=== PATIENT | female | born 1955 | race Caucasian/White ===

== ENCOUNTER → 2018-07-06 15:03 | Outpatient (CLI) | payer BC, SELFPAY ==
--- NOTE | 2018-07-06 15:07 | MM_ITS ---
MM Dig SC mamm implant BI CAD CAD Screening COMPARISON: Digital mammograms with CAD 06/16/2011 and 06/02/2010 INDICATION: There is a history of breast cancer in patient's maternal aunt diagnosed at age 50. The patient has bilateral breast implants. TECHNIQUE: Standard CC and MLO images were obtained. R2 CAD reviewed. FINDINGS: Bilateral breast implants are noted. There is no evidence of leakage. Mild fibroglandular densities are seen in the [place] breast tissue around the implants. There is no suspicious lesion and there are no suspicious microcalcifications. IMPRESSION: Stable exam with bilateral breast implants and no suspicious lesion seen BI-RADS Category: 2 Benign Finding(s) RECOMMENDED FOLLOW-UP: 1YR - 1 YEAR FOLLOW-UP (A letter has been sent to the patient regarding results of the study.)
== END ==
PROVIDERS: Family Provider Family Medicine; PCP Nurse Practitioner Family; Visit Provider Nurse Practitioner Family
DX: Z12.31 Encounter for screening mammogram for malignant neoplasm of breast (principal)
CPT/HCPCS: 77066; 77067

== ENCOUNTER → 2020-03-18 12:02 | Outpatient (CLI) | payer BC, SELFPAY ==
--- NOTE | 2020-03-18 12:36 | ECG_ITS ---
APPROVED REPORT Exam: Resting ECG HR:70 bpm ECG Measurements Heart Rate 70 AXES HI 130 P 82 QRSd 74 QRS 84 QT 422 T 78 QTc 455 <Conclusion> Normal sinus rhythm Right atrial enlargement Minimal voltage criteria for LVH, may be normal variant ST abnormality, possible digitalis effect Abnormal ECG Electronically signed by : Zaid Atkinson, 03/21/2020 14:17:55
== END ==
PROVIDERS: PCP Nurse Practitioner Family; Visit Provider Nurse Practitioner Family
DX: Z86.79 Personal history of other diseases of the circulatory system (principal)
CPT/HCPCS: 93005

== ENCOUNTER → 2020-03-26 07:47 | Outpatient (CLI) | payer BC, SELFPAY ==
--- NOTE | 2020-03-26 07:50 | MM_ITS ---
PROCEDURE: MM DIG SC MAMM IMPLANT BI CAD Digital Breast Tomosynthesis Included CLINICAL INDICATION: SCREENING There is a history of breast cancer in the patient's maternal aunt diagnosed at age 50. The patient has bilateral breast implants. COMPARISON: [facility] DIGITAL MAMM-SCREEN IMPLANT from 06/16/2011 [facility] MM Dig SC mamm implant BI CAD from 07/06/2018 TECHNIQUE: Standard CC and MLO images and 3D Tomosynthesis was obtained. R2 CAD reviewed. FINDINGS: The bilateral breast implants are intact with no evidence of leakage. Prominent diffuse there is a benign-appearing calcification right breast. There is no suspicious lesion and no suspicious microcalcifications. Fibroglandular densities are seen in the [place] breast tissue around the implants. IMPRESSION: Stable exam with no suspicious lesions seen, breast implants are intact BI-RAD Category: 2 Benign Finding(s) FOLLOW-UP: 1YR 1 Year Follow-up (A letter has been sent to the patient regarding results of the study.) Dictated by: Dr. Mike Damon MD 04/01/2020 10:[address] Mike Damon MD in [place] 04/01/2020 10:47
--- NOTE | 2020-03-26 08:45 | CA_ITS ---
APPROVED REPORT EXAM: Comprehensive 2D, Doppler, and color-flow Echocardiogram Sed Special Education Teacher: Rosmery Lombardi RDCS Ht: 5 ft 3 in Wt: 114lbs BSA: 1.52 BP: 130/80 mmHg Indications: MURMUR H/O RHEU HTN 2D Dimensions LVOT 1.69 cm (M/F) 1.5-2.5 M-Mode Dimensions RVDd 2.15 cm (0.9-2.6) LVDd 4.29 cm (3.5-5.7) LVDs 3.22 cm (3.5-5.7) IVSd 0.80 cm (0.6-1.1) PWd 0.74 cm (0.6-1.1) EF (Teich) 49.60% FS 24.90% EDV (Teich) 82.60 mL ESV (Teich) 41.60 mL LV Diastology E/A Ratio 0.61 Mitral Valve MV A Velocity 79.00 (40-130 cm/s) Left Ventricle Left atrium is mildly enlarged, left ventricle is normal size, mild concentric left ventricular hypertrophy, visually estimated ejection fraction 55% with no regional wall motion abnormality. Grade 1 diastolic dysfunction seen without tissue Doppler evidence of raise left atrial pressure. Right Ventricle Right atrium and right ventricle is normal size and contractility. Aortic Valve Aortic valve is minimally thickened and fibrosed, there is no aortic stenosis, there is mild aortic insufficiency. Mitral Valve Mitral valve leaflets are minimally thickened, there is no mitral stenosis, there is mild mitral regurgitation. Tricuspid Valve Tricuspid valve is grossly normal, there is mild tricuspid regurgitation, tricuspid regurgitation jet velocity is inadequate for calculation of the right ventricular systolic pressure. Pulmonic Valve Pulmonic valve is poorly visualized. Great Vessels Aortic root is normal size. Pericardium No significant pericardial effusion noted. Conclusion 1. Mildly enlarged left atrium, normal left ventricular size, mild concentric left ventricular hypertrophy, visually estimated ejection fraction 55% with no regional wall motion abnormality, grade 1 diastolic dysfunction seen without tissue Doppler evidence of raise left atrial pressure. 2. Thickened and calcified aortic valve without aortic stenosis, there is mild aortic insufficiency. 3. Minimally thickened mitral valve without mitral stenosis, there is mild mitral regurgitation. 4. Mild tricuspid regurgitation, tricuspid regurgitation jet velocity is inadequate for calculation of the right ventricular systolic pressure. 5. No significant pericardial effusion noted. Electronically signed by : Fernando Stark, 03/26/2020 15:11:12
== END ==
PROVIDERS: PCP Nurse Practitioner Family; Visit Provider Nurse Practitioner Family
DX: Z12.31 Encounter for screening mammogram for malignant neoplasm of breast (principal); R01.1 Cardiac murmur, unspecified; I10 Essential (primary) hypertension
CPT/HCPCS: 77063; 77067; 93306

== ENCOUNTER → 2020-04-21 13:12 | Outpatient (POV) | payer BC, SELFPAY | PROVIDERS: Visit Provider Dermatology | DX: Z00.00 Encounter for general adult medical examination without abnormal findings (principal) ==

== ENCOUNTER → 2022-03-16 08:08 | Outpatient (CLI) | payer MEDICARE, SELFPAY ==
--- NOTE | 2022-03-16 08:14 | MM_ITS ---
PROCEDURE INFORMATION: Exam: MG Bilateral Screening 3D Mammography Exam date and time: 03/16/2022 9:34 AM Age: 66 years old Clinical indication: Screening examination. Her maternal aunt had breast cancer. TECHNIQUE: Imaging protocol: Bilateral Screening tomosynthesis and 2D mammography including computer-aided detection (CAD) when performed. COMPARISON: 1. MG MM DIG SC MAMM IMPLANT BI CAD 03/26/2020 8:36 AM 2. MG [facility] MM Dig SC mamm implant BI CAD 07/06/2018 3:22 PM FINDINGS: MAMMOGRAPHY: Breast composition: There are scattered areas of fibroglandular density. Mass: None. Architectural distortion: None. Calcifications: No suspicious calcifications. Asymmetric density: None. Skin thickening: None. Axillary adenopathy: None. Implants: Subpectoral saline implants. IMPRESSION: No mammographic evidence of malignancy. Annual screening is recommended unless otherwise clinically indicated. ASSESSMENT: BI-RADS Category 1: Negative
--- NOTE | 2022-03-16 08:14 | XR_ITS ---
FINAL REPORT TECHNIQUE: Bone mineral density was calculated of the lumbar spine and hip. CLINICAL HISTORY: menopausal FINDINGS: DEXA BONE DENSITY AXIAL SKELETON Note this exam was performed on March 16 2022 and submitted for interpretation on March 28 2022 Using L1-4, the bone mineral density of the spine is 1.219 g/cm2, corresponding to T-score of 1.6. These values are likely falsely elevated secondary to hypertrophic change. Using the right hip, the bone mineral density of the femoral neck is 0.666 g/cm2, corresponding to a T-score of -1.7. NOTE: T-score: Standard deviation compared with peak bone mass of young adult mean. *Following the recommendations of the International Society of Bone densitometry, classification of hip BMD is based on the lower of two T-scores; total hip or femoral neck. IMPRESSION: Diminished bone mineral density of the right hip consistent with osteopenia. FRAX 10 year fracture risk is 8.1 % for major osteoporotic fracture. Reviewed, Interpreted and Dictated by Kumar Hauser III, MD Transcribed by Lindy Virgen Authenticated and [facility]
== END ==
PROVIDERS: PCP Nurse Practitioner Family; Visit Provider Nurse Practitioner Family
DX: Z78.0 Asymptomatic menopausal state (principal); Z12.31 Encounter for screening mammogram for malignant neoplasm of breast
CPT/HCPCS: 77063; 77067; 77080

== ENCOUNTER → 2022-03-21 13:50 | Outpatient (CLI) | payer MEDICARE, SELFPAY ==
--- NOTE | 2022-03-21 13:54 | CA_ITS ---
FINAL REPORT TECHNIQUE: Color Doppler, duplex Doppler and flores scale sonography of the bilateral neck arterial vasculature was performed. Velocities were measured in the carotid arteries. Stenosis evaluation based on the validated velocity criteria. CLINICAL HISTORY: LEFT BRUIT,SMOKER,HTN FINDINGS: The peak systolic velocity of the right common carotid artery is 72 cm/s. The peak systolic velocity of the right internal carotid artery is 86 cm/s and end diastolic velocity 23 cm/s. The ICA/CCA ratio is 1.19. A mild hilar amount of plaque is present. The right external carotid artery is patent. The right vertebral artery is patent with antegrade flow. The peak systolic velocity of the left common carotid artery is 81 cm/s. The peak systolic velocity of the left internal carotid artery is 80 cm/s and end diastolic velocity 26 cm/s. The ICA/CCA ratio is 0.98. A mild amount of plaque is present. The left external carotid artery is patent. The left vertebral artery is patent with antegrade flow. IMPRESSION: Less than 50% bilateral carotid stenosis. Bilateral patent vertebral arteries with antegrade flow. Reviewed, Interpreted and Dictated by Kumar Hauser III, MD Transcribed by Lindy Virgen Authenticated and [facility]
--- NOTE | 2022-03-21 14:03 | CT_ITS ---
FINAL REPORT CLINICAL HISTORY: PERSONAL HISTORY OF NICOTINE DEPENDENCE smoker 1ppd x 30 years, family hx of lung cancer. FINDINGS: Low-Dose Chest CT CTDI vol (mGy): 2.90 DLP (mGy-cm): 96.38 Axial images were obtained from the lung apex to the mid abdomen by computed tomography. Low-dose protocol was utilized. FINDINGS: CHEST: There are multiple mildly enlarged axillary nodes, nonspecific, favor reactive over neoplastic. There is no hilar or mediastinal adenopathy. The heart is proper size. There is no pericardial or pleural effusion. Limited images of the upper abdomen are unremarkable. Lung window images demonstrate mild changes of emphysema. There are several calcified granulomas. There are several less than 5 mm pulmonary nodules including a 2 mm anterior right upper lobe nodule on image 36 and a 2 mm left lower lobe nodule on image 54. IMPRESSION: Several less than 5 mm pulmonary nodules. Modifier S: Multiple mildly enlarged axillary lymph nodes, nonspecific. Lung RADS category 2. Recommend 12 month follow-up low-dose chest CT. Reviewed, Interpreted and Dictated by Kumar Hauser III, MD Transcribed by Lindy Virgen Authenticated and [facility]
== END ==
PROVIDERS: PCP Family Medicine; Visit Provider Nurse Practitioner Family
DX: R09.89 Other specified symptoms and signs involving the circulatory and respiratory systems (principal); Z87.891 Personal history of nicotine dependence; Z12.2 Encounter for screening for malignant neoplasm of respiratory organs
CPT/HCPCS: 71271; 93880

== ENCOUNTER 2024-03-25 06:14 | Outpatient (CLI) | payer MEDICARE, SELFPAY ==
--- NOTE | 2024-03-25 06:37 | CT_ITS ---
FINAL REPORT CLINICAL HISTORY: SMOKER for 30 plus years COMPARISON: 03/21/2022 FINDINGS: Axial images were obtained from the lung apex to the mid abdomen by computed tomography. Low-dose protocol was utilized. CTDl vol(mGy): 2.90 DLP (mGy-cm): 96.38 FINDINGS: There is no axillary adenopathy. There is no hilar or mediastinal adenopathy. There are severe left coronary artery calcifications. The heart size is normal. There is no pericardial or pleural effusion. There is mild emphysema and mild scarring. Several small nodules are again identified. There is a 2 mm nodule in the right upper lobe seen on image 45. There is a 2 mm nodule in the left lower lobe seen on image 47. There is no new mass or nodule. Limited images of the upper abdomen are unremarkable. IMPRESSION: Lung RADS category 1S. Recommend 12 month follow-up low-dose chest CT. Modifier S: Severe coronary artery calcifications. Reviewed, Interpreted and Dictated by Kumar Hauser III, MD Transcribed by Mitzi Lobo Authenticated and [facility]
== END 2024-03-25 23:59 | disposition home or self-care (01) ==
LOC: RAD 06:16
PROVIDERS: PCP Family Medicine; Visit Provider Nurse Practitioner Family
DX: Z72.0 Tobacco use (principal)
CPT/HCPCS: 71271

== ENCOUNTER 2024-03-28 10:55 | Outpatient (CLI) | payer MEDICARE, SELFPAY ==
--- NOTE | 2024-03-28 11:02 | MM_ITS ---
PROCEDURE INFORMATION: Exam: MG Bilateral Screening 3D Mammography Exam date and time: 03/28/2024 10:53 AM Age: 68 years old Clinical indication: Screening examination TECHNIQUE: Imaging protocol: Bilateral Screening tomosynthesis and 2D mammography including computer-aided detection (CAD) when performed. COMPARISON: 1. MG MM DIG SC MAMM IMPLANT BI CAD 03/16/2022 9:34 AM 2. MG MM DIG SC MAMM IMPLANT BI CAD 03/26/2020 8:36 AM FINDINGS: MAMMOGRAPHY: Breast composition: The breasts are heterogeneously dense, which may obscure small masses. Mass: None. Architectural distortion: None. Calcifications: No suspicious calcifications. Asymmetric density: None. Skin thickening: None. Axillary adenopathy: None. Implants: Subpectoral saline breast implants are present. IMPRESSION: No mammographic evidence of malignancy. Annual screening is recommended unless otherwise clinically indicated. ASSESSMENT: BI-RADS Category 1: Negative
== END 2024-03-28 23:59 | disposition home or self-care (01) ==
LOC: RAD 10:56
PROVIDERS: PCP Family Medicine; Visit Provider Nurse Practitioner Family
DX: Z12.31 Encounter for screening mammogram for malignant neoplasm of breast (principal)
CPT/HCPCS: 77063; 77067

== ENCOUNTER 2024-04-17 09:15 | Outpatient (CLI) | payer MEDICARE, SELFPAY ==
--- NOTE | 2024-04-17 09:17 | XR_ITS ---
FINAL REPORT TECHNIQUE: Bone mineral density was calculated of the lumbar spine and hip. CLINICAL HISTORY: SCREENING FOR OSTEOPOROSIS COMPARISON: 03/16/2022 FINDINGS: Using L1-4, the bone mineral density of the spine is 1.258 g/cm2, corresponding to T-score of 1.9. Using the left hip, the bone mineral density of the femoral neck is 0.719 g/cm2, corresponding to a T-score of -1.8. Using the right hip, the bone mineral density of the femoral neck is 0.666 g/cm?, corresponding to a T-score of -1.7. NOTE: T-score: Standard deviation compared with peak bone mass of young adult mean. *Following the recommendations of the International Society of Bone densitometry, classification of hip BMD is based on the lower of two T-scores; total hip or femoral neck. IMPRESSION: Diminished bone mineral density of the bilateral hips consistent with low bone density. Normal bone mineral density of the lumbar spine, which is likely falsely elevated secondary to bony sclerosis. Reviewed, Interpreted and Dictated by Kumar Hauser III, MD Transcribed by Waleska Aguayo Authenticated and [facility]
== END 2024-04-17 23:59 | disposition home or self-care (01) ==
LOC: RAD 09:15
PROVIDERS: PCP Family Medicine; Visit Provider Family Medicine
DX: M85.88 Other specified disorders of bone density and structure, other site (principal); Z13.820 Encounter for screening for osteoporosis
CPT/HCPCS: 77080

== ENCOUNTER 2024-04-24 07:44 | Outpatient (CLI) | payer MEDICARE, SELFPAY ==
--- NOTE | 2024-04-24 07:45 | NM_ITS ---
APPROVED REPORT Exam: Nuclear Stress Test Indication: CAD, HTN, HYPERLIPIDEMIA, TOB USE FM HX, HTW, Patient Location: Outpatient Stress Tech: Matilde Velázquez OR Tech:RIMA Mathias RT (R)(N)(M) Ht: 5 ft 3 in Wt: 109 lbs Bra Size: dd HR: 49 bpm BP: 209/93 mmHg BSA: 1.49 m2 TID: 1.12 BMI: 19.3 History: CAD, HTN, HYPERLIPIDEMIA, TOB USE FM HX, HTW, Pt could not lay on stomach for prone images Procedure: Patient received 0.4 mg of intravenous Lexiscan, resting heart rate 49 bpm, resting blood pressure 209/93 mmHg, with Lexiscan maximum heart rate achieved was 80 bpm which is % of the maximum predicted heart rate and blood pressure was 204/100 mmHg. With Lexiscan, patient denied any complaint of chest pain. Cardiac Stress and Resting SPECT Images: Cardiac Stress and Resting SPECT images were obtained using technetium 99m Myoview 31.9 mCi stress and 10.54 mCi at rest. The patient could not lie on her abdomen. Therefore, prone stress imaging could not be performed. This may affect the diagnostic interpretation of the study findings. resting and stress imaging in supine position demonstrate no evidence of fixed or reversible perfusion defects. Gated imaging demonstrates normal global and regional LV systolic function. LVEF is calculated at 59%. Conclusion: No evidence of fixed or reversible perfusion defects. Gated imaging demonstrates normal global and regional LV systolic function. LVEF is calculated at 59%. Electronically signed by : Orly Rascon MD 04/25/2024 12:59:52
--- NOTE | 2024-04-24 07:58 | CA_ITS ---
APPROVED REPORT EXAM: Comprehensive 2D, Doppler, and color-flow Echocardiogram Turf Manager: Rena Barbour CRT Ht: 5 ft 4 in Wt: 109lbs BSA: 1.51 BP: 206/89 mmHg Indications: CAD, Hypertension/HDD, smoker, abn ekg, breast implants 2D Dimensions LA Volume 33.50 mL LA Volume Index 22.19 mL/m2 (M/F) 16-34 M-Mode Dimensions RVDd 2.28 cm (0.9-2.6) LA Diam 2.82 cm (1.9-4.0) LVDd 4.69 cm (3.5-5.7) LVDs 2.95 cm (3.5-5.7) IVSd 0.96 cm (0.6-1.1) PWd 0.72 cm (0.6-1.1) EF (Teich) 67.00% FS 37.10% EDV (Teich) 101.90 mL TAPSE 2.48 (<1.7) ESV (Teich) 33.60 mL LV Diastology E Decel Time 200 (160-240 msec) E/A Ratio 1.1 MED A' 9.20 cm/s LAT A' 7.60 cm/s Aortic Valve AI PHT 784.00 ms AO Peak GR. 6.70 mmHg Mitral Valve MV E Max Rogers. 91.0 (40-130 cm/s) MV A Velocity 82.0 (40-130 cm/s) E/A Ratio 1.11 MV PHT 59.0 ms Pulmonary Valve PV Peak Velocity 95.0 (50-150 cm/s) Tricuspid Valve TR P. Velocity 272.00 cm/s RAP Estimate 10.00 mmHg RVSP 39.70 mmHg Left Ventricle The left ventricle is normal size. The left ventricular systolic function is normal. The left ventricular ejection fraction is within the normal range. There is normal left ventricular wall thickness. There is normal LV segmental wall motion. Grade 2 diastolic dysfunction is present. LVEF is 60%. Right Ventricle The right ventricle is normal size. The right ventricular systolic function is normal. Atria The left atrium is mildly dilated. The right atrium is mildly dilated. There is no Doppler evidence of interatrial shunt. Aortic Valve The aortic valve is mildly thickened. There is no aortic valvular stenosis. Mild aortic regurgitation. Mitral Valve The mitral valve leaflets are mildly thickened. No evidence of mitral valve stenosis. Moderate mitral regurgitation. Tricuspid Valve The tricuspid valve leaflets are thin and pliable. Mild tricuspid regurgitation. RVSP is 30-35 mmHg. Pulmonic Valve The pulmonary valve is normal in structure. Mild pulmonic regurgitation. Great Vessels The aortic root is normal in size. The ascending aorta is not well-visualized. IVC is normal in size and collapses >50% with inspiration. Pericardium There is no pericardial effusion. Other Information Study Quality: Fair Conclusion Normal biventricular systolic function. Grade 2 diastolic dysfunction. Mild biatrial dilation. Moderate MR. Mild AI, mild TR, mild PI. RVSP 30-35 mmHg. Electronically signed by : Orly Rascon MD 04/27/2024 23:46:03
[2024-04-24] MEDS: SODIUM CHLORIDE 0.9% 10ML SYR (RAD ONLY) 10 ML IV ×2 (08:10→10:00)
[2024-04-24] MEDS: REGADENOSON 0.4MG/5ML SYRINGE 0.4 MG IV (10:00)
[2024-04-24] MEDS: ISOTOPE MYOVIEW (PER STUDY) 1 DOSE IV (10:33)
== END 2024-04-24 23:59 | disposition home or self-care (01) ==
LOC: RAD 07:45
PROVIDERS: PCP Family Medicine; Visit Provider Nurse Practitioner
DX: I25.10 Atherosclerotic heart disease of native coronary artery without angina pectoris (principal); I07.1 Rheumatic tricuspid insufficiency; I34.0 Nonrheumatic mitral (valve) insufficiency; I35.1 Nonrheumatic aortic (valve) insufficiency; F17.210 Nicotine dependence, cigarettes, uncomplicated; I11.9 Hypertensive heart disease without heart failure
CPT/HCPCS: 78452; 93017; 93018; 93306; A9502; J2785